=== PATIENT | female | born 1940 | race Hispanic/Latino ===

== ENCOUNTER 2017-09-13 19:58 | Emergency (ER) | payer MEDICARE, OTHER ==
[2017-09-13 20:26] VITALS: PULSE 80; RESP 18; TEMP 98.1; O2SAT 96
--- NOTE | 2017-09-13 21:53 | C.PDOC ---
History Of Present Illness 77 year old female presents to the ER complaining of intermittent nose bleeds from the left nare, onset yesterday. Initially yesterday morning she had a bleed lasting 45 minutes. This morning, she had one lasting 30 minutes. Patient saw her PMD today, who increased her Lisinopril and instructed patient to come to ER if symptoms returned. Otherwise patient feels well. Denies any headache, dizziness, lightheadedness, or pain. Denies trauma. PMD: Omkar Joy Time Seen by Provider: 09/13/17 21:25 Chief Complaint (Nursing): ENT Problem History Per: Patient History/Exam Limitations: no limitations Onset/Duration Of Symptoms: Intermittent Episodes Current Symptoms Are (Timing): Still Present Location Of Bleeding: Left Nare Symptoms Have Been: Episodic Past Medical History Reviewed: Historical Data, Nursing Documentation, Vital Signs Vital Signs: Last Vital Signs Temp 98.1 F 09/13/17 20:20 Pulse 80 09/13/17 20:20 Resp 18 09/13/17 20:20 BP 180/91 H 09/13/17 22:21 Pulse Ox 96 09/13/17 22:26 - Medical History PMH: HTN, Hypercholesterolemia, Hypothyroidism Family History: States: No Known Family Hx - Social History Hx Alcohol Use: Yes Hx Substance Use: No - Immunization History Hx Tetanus Toxoid Vaccination: No Hx Influenza Vaccination: Yes Hx Pneumococcal Vaccination: Yes Review Of Systems Except As Marked, All Systems Reviewed And Found Negative. Constitutional: Negative for: Other (Pain) ENT: Positive for: Other (Nose bleed - left nare) Cardiovascular: Negative for: Light Headedness Neurological: Negative for: Weakness, Headache, Dizziness Physical Exam - Physical Exam Appears: Non-toxic, No Acute Distress Skin: Warm, Dry Head: Atraumatic, Normacephalic Eye(s): bilateral: Normal Inspection, EOMI Nose: Epistaxis (mild bleeding from left nare), No Septal Hematoma Oral Mucosa: Moist Throat: Normal Neck: Normal ROM, Supple Chest: Symmetrical Cardiovascular: Rhythm Regular Respiratory: Normal Breath Sounds, No Accessory Muscle Use, Other (speaking in full sentences) Extremity: Normal ROM Extremity: Bilateral: Atraumatic Neurological/Psych: Oriented x3, Normal Speech, Normal Cognition, No Other ( focal deficits) Gait: Steady ED Course And Treatment - Laboratory Results Result Diagrams: 09/13/17 21:55 O2 Sat by Pulse Oximetry: 96 (RA) Pulse Ox Interpretation: Normal Progress Note: Nighttime dose of Lisinopril, 20 mg PO, given in ED. Ordered blood work. Rhino rocket placed to left nare. No active bleeding. PT given Keflex to prevent infection. Instructed to follow up with Dr Crowe tomorrow. Case discussed with Dr Delvalle, agreed upon plan and discharge. Reassessment Condition: Improved Disposition - Disposition Referrals: Everton Crowe MD [Staff Provider] - Disposition: HOME/ ROUTINE Disposition Time: 22:17 Condition: STABLE Additional Instructions: Follow up with referral physician in 1-2 days without fail for further evaluation. Return to the emergency department at any time if symptoms persist or worsen. Prescriptions: Cephalexin [cephalexin] 500 mg PO BID #14 cap Instructions: Nosebleeds (DC) Forms: [employer] (Turkish) - Clinical Impression Clinical Impression: Epistaxis - PA / INSULATION PROFESSIONAL / Resident Statement MD/DO has reviewed & agrees with the documentation as recorded. - Scribe Statement The provider has reviewed the documentation as recorded by the Scribe (Radha Dejesus) All medical record entries made by the Scribe were at my direction and personally dictated by me. I have reviewed the chart and agree that the record accurately reflects my personal performance of the history, physical exam, medical decision making, and the department course for this patient. I have also personally directed, reviewed, and agree with the discharge instructions and disposition.
[2017-09-13 21:58] LABS: BASO # 0.1 K/uL (0.0-0.2); EOS # 0.1 K/uL (0.0-0.7); EOS % 1.5 % (0.0-4.0); HEMOGLOBIN 13.6 g/dL (11.0-16.0); LYMPH # 2.6 K/uL (1.0-4.3); LYMPH % 28.9 % (20.0-40.0); MEAN CELL VOLUME 89.9 fL (81.0-99.0); MEAN CORPUSCULAR HEMOGLOBIN 30.2 pg (27.0-31.0); MEAN CORPUSCULAR HGB CONC 33.5 g/dL (33.0-37.0); MONO # 0.9 K/uL (0.0-0.8); MONO % 9.7 % (0.0-10.0); NEUT # 5.3 K/uL (1.8-7.0); NEUT % 58.9 % (50.0-75.0); RBC 4.52 Mil/uL (3.80-5.20); WHITE BLOOD COUNT 8.9 K/uL (4.8-10.8)
[2017-09-13 22:21] VITALS: BP 180/91
== END 2017-09-13 22:34 | disposition home or self-care (01) ==
LOC: C.ER 19:58
DX: R04.0 Epistaxis (principal); I10 Essential (primary) hypertension; E78.00 Pure hypercholesterolemia, unspecified; E03.9 Hypothyroidism, unspecified